=== PATIENT | female | born 1990 | race Caucasian/White ===

== ENCOUNTER 2017-03-20 17:34 | Emergency (ER) | payer SELFPAY ==
--- NOTE | 2017-03-20 18:33 | ER Document Report ---
ED GI/ - General Chief Complaint: Vaginal Itching Stated Complaint: VAGINAL ITCHING Mode of Arrival: Ambulatory Information source: Patient TRAVEL OUTSIDE OF THE [place] IN LAST 30 DAYS: No - HPI Patient complains to provider of: Dysuria, Other - Vaginal itching Notes: 03/20/17 18:31 Patient arrives with complaints of vaginal itching and burning as well as burning with urination. She states that she noted some vaginal itching a few days ago, she got vaginocele and ever since using that she is now having irritation to the area. She states that it sanchez when she urinates. She denies any specific rash. She denies any discharge. She has no abdominal pain. No nausea, vomiting, diarrhea. She denies any other rashes. Her is being seen currently and noted to have a genital yeast infection at this time. She denies any concern for sexually transmitted infections. - Related Data Allergies/Adverse Reactions: Sulfa (Sulfonamide Antibiotics) Adverse Reaction (Verified 03/20/17 17:55) Past Medical History - Social History Smoking Status: Unknown if Ever Smoked Family History: Reviewed & Not Pertinent, Other - with same sx Patient has suicidal ideation: No Patient has homicidal ideation: No - Past Medical History Cardiac Medical History: Reports: Hx Heart Murmur Renal/ Medical History: Denies: Hx Peritoneal Dialysis GI Medical History: Reports: Hx Gastroesophageal Reflux Disease Psychiatric Medical History: Reports: Hx Anxiety Past Surgical History: Reports: Hx Cardiac Surgery - for coarctation of aorta, Hx Section - Immunizations Immunizations up to date: Yes Hx Diphtheria, Pertussis, Tetanus Vaccination: Yes Review of Systems - Review of Systems -: Yes All other systems reviewed and negative Physical Exam - Vital signs Vitals: Temp Pulse Resp BP Pulse Ox 98.5 F 77 16 132/58 H 99 03/20/17 17:57 03/20/17 17:57 03/20/17 17:57 03/20/17 17:57 03/20/17 17:57 - Notes Notes: GENERAL: alert, cooperative, nontoxic, no distress. HEAD: normocephalic, atraumatic EYES: conjunctiva pink without discharge, no external redness or swelling. EARS: no external swelling, no external redness NOSE: atraumatic, no external swelling MOUTH/THROAT: mucous membranes moist and pink, posterior pharynx without erythema, swelling, exudate. No trismus or drooling. NECK: soft, supple, full range of motion, no meningismus. CHEST: no distress, lungs clear and equal throughout. No wheezing, rales, rhonchi. CARDIAC: regular rate and rhythm, systolic murmur, normal capillary refill, normal pulses. No peripheral edema noted. ABDOMEN: Soft, nontender. BACK: full range of motion, no CVA tenderness. EXTREMITIES: full range of motion of all extremities. No redness, no swelling. NEURO: alert and oriented x 3, no focal deficits, full range of motion of all extremities. PYSCH: appropriate mood, affect. Patient is cooperative. SKIN: pink, warm, dry, no rash. : The patient declined to have a pelvic exam done at this time. She will obtain a cell swab for wet prep as well as a urinalysis. Course - Re-evaluation Re-evalutation: 03/20/17 19:12 Patient is nontoxic-appearing with stable vitals. The patient arrives with complaints of vaginal itching and now burning when she urinates. Urinalysis shows no signs of UTI, urine is negative. Wet prep is consistent with bacterial vaginosis. The patient declined a pelvic exam at this time. She has no concern for sexually transmitted infection at this time. The patient will be discharged home on Flagyl. Instructions to not drink alcohol while taking Flagyl. Follow-up if not improved in the next 5-7 days, sooner for increased pain, fever, abdominal pain, persistent vomiting, or any further concerns. The patient is noted to have elevated blood pressure during today's emergency department visit. The patient was informed of this finding. The patient was instructed that this may be related to pre-hypertension and requires further evaluation with a primary care provider. The patient has no hypertensive symptoms at this time. The patient's emergency department workup and current diagnosis were explained to the patient and or family. Follow-up instructions were provided. Medications if prescribed were discussed. Instructions for when to return to the emergency department including specific worrisome symptoms were discussed with the patient and/or family. - Vital Signs Vital signs: Temp Pulse Resp BP Pulse Ox 98.5 F 77 16 132/58 H 99 03/20/17 17:57 03/20/17 17:57 03/20/17 17:57 03/20/17 17:57 03/20/17 17:57 - Laboratory Laboratory results interpreted by me: 03/20/17 18:30 Ur Leukocyte Esterase TRACE H Discharge - Discharge Clinical Impression: Bacterial vaginosis Condition: Stable Disposition: HOME, SELF-CARE Instructions: Vaginosis, Bacterial ([facility]) Additional Instructions: Take medications as prescribed. Drink plenty of fluids. Avoid alcohol while taking the Flagyl. Follow-up with your doctor if not better in 5-7 days, sooner for increased pain, fever, abdominal pain, vomiting, or any further concerns. Your blood pressure was elevated during today's visit. Have this rechecked with your doctor. Prescriptions: Metronidazole [Flagyl 500 mg Tablet] 500 mg PO TID #21 tablet Forms: Elevated Blood Pressure
[2017-03-20 18:52] LABS: APPEARANCE,URINE SLIGHTLY-CLOUDY; BILIRUBIN,URINE NEGATIVE (NEGATIVE); GLUCOSE, URINE NEGATIVE (NEGATIVE); KETONES,URINE NEGATIVE (NEGATIVE); LEUKOCYTE ESTERASE,URINE TRACE (NEGATIVE); NITRITE,URINE NEGATIVE (NEGATIVE); PROTEIN,URINE NEGATIVE (NEGATIVE); URINE SPECIFIC GRAVITY 1.019; UROBILINOGEN,URINE NEGATIVE mg/dL (<2.0)
[2017-03-20 19:27] VITALS: BP 127/80
== END 2017-03-20 19:27 | disposition home or self-care (01) ==
LOC: ER 17:34
DX: N76.0 Acute vaginitis (principal); B96.89 Other specified bacterial agents as the cause of diseases classified elsewhere; Z88.2 Allergy status to sulfonamides
CPT/HCPCS: 81001; 81025; 87210; 99283

== ENCOUNTER 2017-10-26 17:42 | Emergency (ER) | payer SELFPAY ==
[2017-10-26] MEDS ORDERED: HYDROCODONE/ACETAMINOPHEN 5-325 MG TABLET PO ONE (19:25)
--- NOTE | 2017-10-26 19:26 | ER Document Report ---
HPI - HPI Patient complains to provider of: r foot pain Onset: Yesterday Onset/Duration: Gradual Quality of pain: Achy Pain Level: 4 Context: Patient presents complaining of right lateral foot pain that started gradually while she was walking. Patient denies any specific injury. Patient complains of lateral foot swelling. Associated Symptoms: Other - Right foot pain Exacerbated by: Standing, Movement, Walking Relieved by: Denies Similar symptoms previously: No Recently seen / treated by doctor: No - ROS ROS below otherwise negative: Yes Systems Reviewed and Negative: Yes All other systems reviewed and negative - CONSTITUTIONAL Constitutional: DENIES: Fever, Chills - REPRODUCTIVE Reproductive: DENIES: : - MUSCULOSKELETAL Musculoskeletal: REPORTS: Extremity pain - r foot, Swelling - DERM Skin Color: Normal Skin Problems: None Past Medical History - General Information source: Patient - Social History Smoking Status: Never Smoker Chew tobacco use (# tins/day): No Frequency of alcohol use: None Drug Abuse: None Occupation: seafood fisherman Lives with: Family Family History: Reviewed & Not Pertinent, Other - with same sx Patient has suicidal ideation: No Patient has homicidal ideation: No - Past Medical History Cardiac Medical History: Reports: Hx Heart Murmur Renal/ Medical History: Denies: Hx Peritoneal Dialysis GI Medical History: Reports: Hx Gastroesophageal Reflux Disease Psychiatric Medical History: Reports: Hx Anxiety Past Surgical History: Reports: Hx Cardiac Surgery - for coarctation of aorta, Hx Section - Immunizations Immunizations up to date: Yes Hx Diphtheria, Pertussis, Tetanus Vaccination: Yes Vertical Provider Document - CONSTITUTIONAL Agree With Documented VS: Yes Exam Limitations: No Limitations General Appearance: WD/WN, No Apparent Distress - INFECTION CONTROL TRAVEL OUTSIDE OF THE [place] IN LAST 30 DAYS: No - HEENT HEENT: Atraumatic, Normocephalic - NECK Neck: Normal Inspection - RESPIRATORY Respiratory: No Respiratory Distress O2 Sat by Pulse Oximetry: 100 - CARDIOVASCULAR Pulses: Normal: Dorsalis pedis - BACK Back: Normal Inspection - MUSCULOSKELETAL/EXTREMETIES Musculoskeletal/Extremeties: MAEW, Tender - Right foot tenderness over proximal fifth metatarsal with 1+ edema, Edema. negative: Eccymosis - NEURO Level of Consciousness: Awake, Alert, Appropriate Motor/Sensory: No Motor Deficit - DERM Integumentary: Warm, Dry, No Rash Course - Vital Signs Vital signs: Temp Pulse Resp BP Pulse Ox 98.4 F 72 20 122/65 100 10/26/17 17:56 10/26/17 17:56 10/26/17 17:56 10/26/17 17:56 10/26/17 17:56 - Diagnostic Test Radiology reviewed: Image reviewed, Reports reviewed Procedures - Immobilization Right Foot Pre-Proc Neuro Vasc Exam: Normal Immobilizer type: Luis wrap, Post-op shoe Performed by: PCT Post-Proc Neuro Vasc Exam: Normal Alignment checked and good: Yes Discharge - Discharge Clinical Impression: Right foot sprain Qualifiers: Encounter type: initial encounter Qualified Code(s): S93.601A - Unspecified sprain of right foot, initial encounter Condition: Stable Disposition: HOME, SELF-CARE Instructions: Luis Wrap ([facility]), Oral Narcotic Medication ([facility]), Post-Op Shoe ([facility] ), Sprain ([facility]) Additional Instructions: Return immediately for any new or worsening symptoms Followup with your primary care provider, call tomorrow to make a followup appointment Weightbearing as tolerated Follow-up with orthopedic doctor for any continued pain or problems Prescriptions: Naproxen [Naprosyn 250 Nmg Tablet] 1 tab PO BID #14 tablet Forms: Return to Work Referrals: [facility] ([place] [Provider Group] - Follow up as needed
--- NOTE | 2017-10-26 20:01 | RADIOLOGY REPORT (SQ) ---
EXAM DESCRIPTION: FOOT RIGHT COMPLETE COMPLETED DATE/TIME: 10/26/2017 7:47 pm REASON FOR STUDY: r foot pain over 5th MT COMPARISON: None. NUMBER OF VIEWS: Three views. TECHNIQUE: AP, lateral and oblique radiographic images acquired of the right foot. LIMITATIONS: None. FINDINGS: MINERALIZATION: Normal. BONES: No acute fracture or dislocation. No worrisome bone lesions. JOINTS: No effusions. SOFT TISSUES: No soft tissue swelling. No foreign body. OTHER: No other significant finding. IMPRESSION: NEGATIVE STUDY OF THE RIGHT FOOT. NO RADIOGRAPHIC EVIDENCE OF ACUTE INJURY. TECHNICAL DOCUMENTATION: JOB ID: [id number] [employer]- All Rights Reserved
[2017-10-26 20:45] VITALS: BP 135/59
== END 2017-10-26 20:45 | disposition home or self-care (01) ==
LOC: ER 17:42
DX: S93.601A Unspecified sprain of right foot, initial encounter (principal); M79.671 Pain in right foot; X58.XXXA Exposure to other specified factors, initial encounter
CPT/HCPCS: 99283